=== PATIENT | female | born 1950 | race Caucasian/White ===

== ENCOUNTER → 2023-05-14 10:04 | Outpatient (CLI) | payer MEDICARE, SELFPAY ==
--- NOTE | ~2023-05-14 | DEXA_ITS ---
Bone Density Report Name: CHEL PATEL Age: 73 Sex: Female Ethnicity: White Date of : 1950 Indication: osteopenia; hysterectomy; postmenopausal Referring Provider: IAM, SHAWN Ricketts Study: Bone densitometry was performed. Exam Date: May 14, 2023 Accession number: [id number] Bone Density: Region BMD T-score Z-score Classification AP Spine (L1-L4) 0.955 -0.8 1.3 Normal Femoral Neck (Left) 0.713 -1.2 0.6 Osteopenia Total Hip (Left) 0.778 -1.3 0.2 Osteopenia Femoral Neck (Right) 0.687 -1.5 0.4 Osteopenia Total Hip (Right) 0.828 -0.9 0.6 Normal Total Hip Mean 0.803 -1.1 0.4 Osteopenia World Health Organization criteria for BMD impression classify patients as: Normal (T-score at or above -1.0), Osteopenia (T-score between -1.0 and -2.5), or Osteoporosis (T-score at or below -2.5). 10-year Fracture Risk(1): Major Osteoporotic Fracture 9.8% Hip Fracture 1.4% Reported Risk Factors: [place] (), Neck BMD=0.687, BMI=29.3 (1) FRAX(R) Version 3.08. Fracture probability calculated for an untreated patient. Fracture probability may be lower if the patient has received treatment. Previous Exams: Region Exam Age BMD T-score BMD Change BMD Change Date g/cm2 vs Baseline vs Previous AP Spine(L1-L4) 05/14/2023 73 0.955 -0.8 -0.089* 0.040* 05/26/2019 69 0.915 -1.2 -0.129* -0.129* 12/12/2007 57 1.044 0.0 Total Hip(Left) 05/14/2023 73 0.778 -1.3 -0.196* 0.005 05/26/2019 69 0.774 -1.4 -0.201* -0.201* 12/12/2007 57 0.974 0.3 Total Hip(Right) 05/14/2023 73 0.828 -0.9 -0.167* 0.040* 05/26/2019 69 0.788 -1.3 -0.207* -0.207* 12/12/2007 57 0.995 0.4 *Denotes significance at 95% confidence level, LSC for AP Spine = 0.022 g/cm2, LSC for Total Hip = 0.027 g/cm2 Clinical Information Provided by Patient: Has used the following medications: Vitamin D Has the following medical conditions: Hysterectomy, breast cancer 2009 Patient maximum height was 68 Menopause Age: 52 No regular weight bearing exercise Drinks caffeinated beverages Onset of menses at age 16 Number of children 3 Impression: The patient has low bone mass, based on the Right Femoral Neck T-score. The patient has an estimated ten-year risk of hip fracture of 1.4% and an estimated ten-year risk of major fracture of 9.8%, based on the WHO F
== END ==
PROVIDERS: PCP Internal Medicine; Visit Provider Internal Medicine
DX: Z78.0 Asymptomatic menopausal state (principal); M85.89 Other specified disorders of bone density and structure, multiple sites
CPT/HCPCS: 77080

== ENCOUNTER 2024-04-09 00:47 | Day surgery (SDC) | payer MEDICARE, OTHER, SELFPAY ==
[2024-03-20 15:26] VITALS: BMI 27.6
[2024-04-09 08:48] VITALS: BP 129/83; PULSE 89; RESP 16; TEMP 35.7; O2SAT 99; BMI 28.7
[2024-04-09] MEDS: LACTATED RINGERS 1,000 ML 150 ML IV CONT (09:09)
--- NOTE | 2024-04-09 09:22 | PM.HPGS ---
History of Present Illness History of Present Illness Consent: Risks, benefits, and alternatives have been discussed and questions answered. Patient agrees to proceed with procedure. Chief complaint: screening for malignant neoplasm colon Narrative: Brooke Marinelli is a 74 year old female here for colonoscopy, last one about 6 years ago, h/o colon polyp Review of Systems Review of Systems: All systems reviewed & are unremarkable except as noted in HPI and below PMFSH Past Medical History Medical History (Updated 04/09/24 @ 09:25 by Vipul Rawls MD) Colon polyp Social History Social History Alcohol intake: current Alcohol use details: 2 per month Living arrangements: with family Spiritual care concerns: No Meds Home Medications and Allergies Home Medications Medication Instructions Recorded Confirmed Type No Home Medications 03/20/24 04/09/24 History Allergies Allergy/AdvReac Type Severity Reaction Status Date / Time iodine Allergy Hives Verified 04/09/24 08:54 Vital Signs Vital Signs - 24 hr 04/09/24 08:48 Temperature 96.3 F L Pulse Rate 89 Respiratory Rate 16 Blood Pressure 129/83 Pulse Oximetry 99 Oxygen Delivery Room Air Exam Const: General: comfortable and no acute distress HENMT: Face/Nose/Sinus: Normal nares present Eyes: General: appearance normal, both eyes and all related structures Neck: Neck: no JVD Resp: Auscultation: clear to auscultation bilaterally Cardio: Rate: regular rate Rhythm: regular rhythm GI: Inspection: non-distended GI Palp: Yes Soft to palpation Skin: General skin exam: normal color Neuro: General: gait normal Speech: normal speech Extrem: General: normal to inspection Psych: Mental Status: mental status grossly normal Assessment and Plan Assessment and plan (1) Colon polyp: Code(s): K63.5 - Polyp of colon Status: Acute Assessment and Plan: colonoscopy
--- NOTE | 2024-04-09 09:25 | P.PNAN_ITS ---
Anes - Initial Pre Proc Eval Procedure: Operation Date: 04/09/24 10:00 Proposed Procedures p Screening Colonoscopy - Vipul Rawls MD Date/Time: 04/09/24 09:25 Surgeon: Vipul Rawls MD Pre Op Diagnosis: screening for malignant neoplasm colon Patient Data Age: 74 Gender: F Height: 1.7 m Weight: 83.1 kg Last Vital Signs Temp 96.3 F L 04/09/24 08:48 Pulse 89 04/09/24 08:48 Resp 16 04/09/24 08:48 BP 129/83 04/09/24 08:48 Pulse Ox 99 04/09/24 08:48 O2 Del Method Room Air 04/09/24 08:48 Allergies Allergy/AdvReac Type Severity Reaction Status Date / Time iodine Allergy Hives Verified 04/09/24 08:54 Home Medications Medication Instructions Recorded Confirmed Type No Home Medications 03/20/24 04/09/24 History Patient hx anesthesia problems: none Family hx anesthesia problems: none Results Review: All pre-operative results and documents have been reviewed as part of the pre- operative evaluation. [facility] Past Medical History Medical History (Updated 04/09/24 @ 09:25 by Vipul Rawls MD) Colon polyp Social History Social History Alcohol intake: current Alcohol use details: 2 per month Living arrangements: with family Spiritual care concerns: No Anes - Eval Final PreProcedure Day of Procedure 04/09/24 09:25 Patient weight: normal Heart: regular rate and rhythm Lungs: clear to auscultation Airway: Mallampati scale class II Neurological: alert and oriented Last oral intake: >/= 8 hours ASA classification: III Emergent: no Anesthetic plan: proceed Anesthesia type and monitoring: general GIVS and standard monitoring Results Review: All pre-operative results and documents have been reviewed as part of the pre- operative evaluation. Informed Consent: The patient's anesthetic plan and its attendant risks and benefits were discussed with the patient/family/POA. Questions were solicited and answers provided to the satisfaction of the patient/family/POA.
[2024-04-09 09:49] VITALS: BP 156/74; PULSE 84; RESP 17; O2SAT 100
[2024-04-09 09:59] VITALS: BP 134/71; PULSE 78; RESP 21; O2SAT 100
[2024-04-09 10:09] VITALS: BP 141/83; PULSE 70; RESP 18; O2SAT 100
== END 2024-04-09 10:16 | disposition home or self-care (01) ==
PROVIDERS: PCP Internal Medicine; Referring Provider Internal Medicine; Visit Provider Internal Medicine Gastroenterology
PROC: 0DJD8ZZ Inspection of Lower Intestinal Tract, Via Natural or Artificial Opening Endoscopic (ICD-10-PCS; CPT 45378; principal; 2024-04-09 10:00)
DX: Z12.11 Encounter for screening for malignant neoplasm of colon (principal); D12.2 Benign neoplasm of ascending colon; D12.3 Benign neoplasm of transverse colon; K57.30 Diverticulosis of large intestine without perforation or abscess without bleeding
CPT/HCPCS: 45385; 88305; J2003; J2704; J7120